=== PATIENT | female | born 1995 | race Caucasian/White ===

== ENCOUNTER 2016-07-27 16:19 | Emergency (ER) | payer OTHER ==
[2016-07-27] MEDS ORDERED: LIDOCAINE VISCOUS 2% 15 ML UDC MM STA (17:33)
[2016-07-27] MEDS ORDERED: MAG HYDROX/AL HYDROX/SIMETH 30 ML UDC PO STA (17:33)
[2016-07-27] MEDS ORDERED: IBUPROFEN 600 MG TABLET PO STA (17:33)
[2016-07-27] MEDS ORDERED: IBUPROFEN 600 MG TABLET PO ONE (17:39)
[2016-07-27] MEDS ORDERED: MAG HYDROX/AL HYDROX/SIMETH 30 ML UDC ONE (17:39)
[2016-07-27] MEDS ORDERED: LIDOCAINE VISCOUS 2% 15 ML UDC MM ONE (17:39)
[2016-07-27] MEDS ORDERED: FAMOTIDINE 20 MG TABLET PO STA (19:26)
[2016-07-27] MEDS ORDERED: CEPHALEXIN 250 MG CAPSULE PO STA (19:26)
[2016-07-27] MEDS ORDERED: FAMOTIDINE 20 MG TABLET ONE (19:30)
[2016-07-27] MEDS ORDERED: CEPHALEXIN 250 MG CAPSULE PO ONE (19:30)
== END 2016-07-27 19:37 | disposition home or self-care (01) ==
DX: O99.89 Other specified diseases and conditions complicating pregnancy, childbirth and the puerperium (principal); R07.2 Precordial pain; R03.0 Elevated blood-pressure reading, without diagnosis of hypertension; O23.12 Infections of bladder in pregnancy, second trimester; Z3A.19 19 weeks gestation of pregnancy
CPT/HCPCS: 36415; 80053; 81001; 83690; 85025; 93005; 99283; 99284; A9270

== ENCOUNTER 2016-12-02 21:31 | Outpatient (CLI) | payer OTHER | END 2016-12-02 22:37 | disposition still patient (30) | DX: O36.8130 Decreased fetal movements, third trimester, not applicable or unspecified (principal); O99.89 Other specified diseases and conditions complicating pregnancy, childbirth and the puerperium; R07.9 Chest pain, unspecified; R06.02 Shortness of breath; Z3A.36 36 weeks gestation of pregnancy ==

== ENCOUNTER 2016-12-02 22:42 | Emergency (ER) | payer OTHER ==
--- NOTE | 2016-12-02 22:45 | ED Physician Documentation ---
PD HPI CHEST PAIN - Stated complaint Stated Complaint: BACK,CHEST PAIN,36W - History obtained from History obtained from: Patient - History of Present Illness Timing - onset: How many days ago (few) Timing - onset during: Light activity Timing - duration: Days Timing - details: Abrupt onset, Still present, Waxing and waning Quality: Sharp, Pain Location: Left chest, Other (left medial scapular area, radiating to chest at times.) Radiation: Back Improved by: Other (sitting up) Worsened by: Position (lying down flatter). No: Inspiration, Movement Associated symptoms: No: Shortness of air, Diaphoresis, Nausea, Feeling faint / dizzy, Palpitations, Cough Similar symptoms before: Has not had sx before Review of Systems Constitutional: denies: Fever, Chills Nose: denies: Rhinorrhea / runny nose, Congestion Throat: denies: Sore throat Cardiac: denies: Palpitations, Pedal edema, Calf pain Respiratory: denies: Dyspnea, Cough GI: reports: Nausea, Other (having intermittent contraction pains for the past week, is 37 weeks .). denies: Vomiting, Diarrhea : reports: Frequency. denies: Dysuria Skin: denies: Rash, Lesions Musculoskeletal: reports: Back pain. denies: Extremity pain Neurologic: denies: Focal weakness, Numbness PD PAST MEDICAL HISTORY - Past Medical History Respiratory: Asthma Musculoskeletal: None - Past Surgical History Past Surgical History: Yes HEENT: Myringotomy (tubes) - Present Medications Home Medications: Ambulatory Orders Medication Instructions Recorded Confirmed Cephalexin [Keflex] 500 mg PO TID #15 capsule 07/27/16 Famotidine 20 mg PO DAILY #30 tablet 07/27/16 Methocarbamol [Robaxin] 500 mg PO TID #25 tablet 12/03/16 - Allergies Allergies/Adverse Reactions: Allergies Allergy/AdvReac Type Severity Reaction Status Date / Time No Known Drug Allergies Allergy Verified 07/27/16 17:07 - Social History Does the pt smoke?: No Smoking Status: Never smoker Does the pt drink ETOH?: No Does the pt have substance abuse?: No - Family History Family history: denies: Venous thromboembolism, Aortic aneursym, Aortic dissection - Immunizations Immunizations are current?: Yes PD ED PE NORMAL - Vitals Vital signs reviewed: Yes - General General: Alert and oriented X 3, Well developed/nourished - Neck Neck: Supple, no meningeal sign, No adenopathy - Cardiac Cardiac: RRR, No murmur - Respiratory Respiratory: No respiratory distress, Clear bilaterally - Abdomen Abdomen: Normal bowel sounds, Soft, Other (gravid to below xyphoid c/w dates. Not tender. ) - Female Female : Deferred - Rectal Rectal: Deferred - Back Back: No CVA TTP, Other (Muscular tender left medial scapular area about T4-5 level. ) - Derm Derm: Normal color, Warm and dry, No rash - Extremities Extremities: Normal ROM s pain, No edema, No calf tenderness / cord - Neuro Neuro: Alert and oriented X 3, No motor deficit, Normal speech Results - Vitals Vitals: Vital Signs - 24 hr 12/02/16 12/03/16 22:50 00:16 Temperature 36.6 C Heart Rate 52 L 101 H Respiratory 16 18 Rate Blood Pressure 143/75 H 131/67 H O2 Saturation 98 100 Oxygen O2 Source Room air - EKG (time done) 23:28 Rate: Rate (enter#) (94) Rhythm: NSR [place]: Normal Intervals: Normal VT QRS: Normal Ischemia: Normal ST segments. No: ST elevation c/w ischemia, ST depression - Rads (name of study) chest Radiology: Prelim report reviewed (normal) PD MEDICAL DECISION MAKING - ED course Complexity details: reviewed results, considered differential (she has pain with position (worse lying down, better sitting up), not with breathing, and does not have dyspnea nor cough. There is tenderness to palpation in medial scapular muscle on left. CXR and ECG, vitals, HR, sats are good. Does not seem like threatening cause. ), d/w patient Departure - Departure Disposition: 01 Home, Self Care Clinical Impression: Acute thoracic back pain Qualifiers: Back pain laterality: left Qualified Code(s): M54.6 - Pain in thoracic spine Qualifiers: Weeks of gestation: 37 weeks Qualified Code(s): Z3A.37 - 37 weeks gestation of Condition: Stable Record reviewed to determine appropriate education?: Yes Instructions: ED Sprain Thoracic Spine Prescriptions: Methocarbamol [Robaxin] 500 mg PO TID #25 tablet Comments: Tylenol 650 mg four times daily. Add Robaxin muscle relaxant three times daily as needed for spasms/muscle pain. Use the hydrocodone every 6 hours if needed ( prepack). Follow up [employer] in the next 1-2 days. Return sooner if worse or other symptoms. This seems like muscular pain in the upper back. It could be somewhat referred back contractions pain, though seems a bit high up for that and not correlating with the uterine contractions. Discharge Date/Time: 12/03/16 00:17
[2016-12-02] MEDS ORDERED: HYDROcod/ACETAM 5/325 MG TABLET PO STA (23:05)
[2016-12-02] MEDS ORDERED: HYDROcod/ACETAM 5/325 MG TABLET ONE (23:12)
--- NOTE | 2016-12-02 23:40 | XRAY Preliminary Report ---
Exam: XR Chest 1 View IMPRESSION: 1. No acute abnormality seen in the chest. [facility] SITE ID: [id number]
--- NOTE | 2016-12-02 23:42 | XRAY Report ---
EXAM: CHEST RADIOGRAPHY EXAM DATE: 12/02/2016 11:25 PM. CLINICAL HISTORY: Upper chest pain since yesterday. COMPARISON: None. TECHNIQUE: 1 view. FINDINGS: Lungs/Pleura: No alveolar consolidation or pleural effusion. No pneumothorax. Mediastinum: Within exam limitations, cardiomediastinal contour is normal. Other: None. IMPRESSION: 1. No acute abnormality seen in the chest. [facility] Referring Provider Line: [phone] SITE ID: [id number]
[2016-12-03] MEDS ORDERED: HYDROcod/ACET 5/325 Prepack 6 PO ONE ×2 (00:06→00:07)
[2016-12-03] MEDS ORDERED: METHOCARBAMOL 500 MG TABLET PO STA (00:06)
[2016-12-03] MEDS ORDERED: METHOCARBAMOL 500 MG TABLET PO ONE (00:08)
[2016-12-03 00:17] VITALS: BP 131/67
== END 2016-12-03 00:17 | disposition home or self-care (01) ==
LOC: ED 22:42
DX: O99.89 Other specified diseases and conditions complicating pregnancy, childbirth and the puerperium (principal); M54.6 Pain in thoracic spine; O36.8130 Decreased fetal movements, third trimester, not applicable or unspecified; R07.9 Chest pain, unspecified; R06.02 Shortness of breath; Z3A.36 36 weeks gestation of pregnancy
CPT/HCPCS: 59025; 71010; 81001; 93005; 99214; 99283; 99284; A9270

== ENCOUNTER 2017-01-18 13:11 | Emergency (ER) | payer OTHER ==
--- NOTE | 2017-01-18 13:30 | ED Physician Documentation ---
PD HPI MHE - Stated complaint Stated Complaint: MHE - Chief complaint Chief Complaint: MHE - History obtained from History obtained from: Patient, Family - Additional information Additional information: She is about a month , shortly after giving she started having thoughts of killing her drowning her baby, few weeks later has been having thoughts of self-harm because she feels so guilty about that. Prior to giving she really did not have any psychiatric issues. She started Zoloft yesterday. Review of Systems Ten Systems: 10 systems reviewed and negative Constitutional: reports: Reviewed and negative Throat: reports: Reviewed and negative Cardiac: reports: Reviewed and negative Respiratory: reports: Dyspnea PD PAST MEDICAL HISTORY - Past Medical History Respiratory: Asthma Musculoskeletal: None - Past Surgical History Past Surgical History: Yes HEENT: Myringotomy (tubes) - Present Medications Home Medications: Ambulatory Orders Medication Instructions Recorded Confirmed Cephalexin [Keflex] 500 mg PO TID #15 capsule 07/27/16 Famotidine 20 mg PO DAILY #30 tablet 07/27/16 Methocarbamol [Robaxin] 500 mg PO TID #25 tablet 12/03/16 - Allergies Allergies/Adverse Reactions: Allergies Allergy/AdvReac Type Severity Reaction Status Date / Time No Known Drug Allergies Allergy Verified 07/27/16 17:07 - Social History Does the pt smoke?: No Smoking Status: Never smoker Does the pt drink ETOH?: No Does the pt have substance abuse?: No - Family History Family history: reports: Non contributory - Immunizations Immunizations are current?: Yes PD ED PE NORMAL - Vitals Vital signs reviewed: Yes - General General: Alert and oriented X 3, No acute distress - HEENT HEENT: PERRL, EOMI - Neck Neck: Supple, no meningeal sign, No bony TTP - Cardiac Cardiac: RRR, No murmur - Respiratory Respiratory: No respiratory distress, Clear bilaterally - Abdomen Abdomen: Soft, Non tender - Back Back: No CVA TTP, No spinal TTP - Derm Derm: Normal color, Warm and dry - Extremities Extremities: No edema, No calf tenderness / cord - Neuro Neuro: Alert and oriented X 3, Normal speech - Psych Psych: Normal mood, Normal affect Results - Vitals Vitals: Vital Signs - 24 hr 01/18/17 01/18/17 13:16 18:10 Temperature 36.6 C Heart Rate 84 80 Respiratory 18 18 Rate Blood Pressure 136/60 H 135/62 H O2 Saturation 98 98 Oxygen O2 Source Room air - Labs Labs: Laboratory Tests 01/18/17 01/18/17 01/18/17 13:57 13:57 13:57 WBC 7.7 RBC 4.76 Hgb 12.2 Hct 37.5 MCV 78.7 L MCH 25.6 L MCHC 32.5 RDW 18.1 H Plt Count 363 MPV 7.2 L Neut # 4.2 Lymph # 2.4 [place] # 0.6 Eos # 0.4 Baso # 0.1 Absolute Nucleated RBC 0.01 Nucleated RBCs 0.1 Sodium 138 Potassium 3.9 Chloride 104 Carbon Dioxide 25 Anion Gap 9.0 BUN 18 Creatinine 0.9 Estimated GFR (MDRD) 78 L Glucose 105 H Calcium 9.9 Total Bilirubin 0.5 AST 27 ALT 33 Alkaline Phosphatase 63 Total Protein 8.1 Albumin 4.1 Globulin 4.0 Albumin/Globulin Ratio 1.0 Lipase 22 TSH 1.68 Urine Color Urine Clarity Urine pH Ur Specific [place] Urine Protein Urine Glucose (UA) Urine Ketones Urine Occult Blood Urine Nitrite Urine Bilirubin Urine Urobilinogen Ur Leukocyte Esterase Urine RBC Urine WBC Ur Squamous Epith Cells Urine Bacteria Ur Microscopic Review Urine Culture Comments Urine HCG, Qual Urine Opiates Screen Ur Oxycodone Screen Urine Methadone Screen Ur Propoxyphene Screen Ur Barbiturates Screen Ur Tricyclics Screen Ur Phencyclidine Scrn Ur Amphetamine Screen U Methamphetamines Scrn U Benzodiazepines Scrn Urine Cocaine Screen U Cannabinoids Screen Ethyl Alcohol < 5.0 01/18/17 01/18/17 16:40 16:40 WBC RBC Hgb Hct MCV MCH MCHC RDW Plt Count MPV Neut # Lymph # [place] # Eos # Baso # Absolute Nucleated RBC Nucleated RBCs Sodium Potassium Chloride Carbon Dioxide Anion Gap BUN Creatinine Estimated GFR (MDRD) Glucose Calcium Total Bilirubin AST ALT Alkaline Phosphatase Total Protein Albumin Globulin Albumin/Globulin Ratio Lipase TSH Urine Color YELLOW Urine Clarity SL. CLOUDY Urine pH 5.5 Ur Specific [place] 1.015 Urine Protein NEGATIVE Urine Glucose (UA) NEGATIVE Urine Ketones NEGATIVE Urine Occult Blood SMALL H Urine Nitrite NEGATIVE Urine Bilirubin NEGATIVE Urine Urobilinogen 0.2 (NORMAL) Ur Leukocyte Esterase LARGE H Urine RBC 6-10 H Urine WBC 11-25 H Ur Squamous Epith Cells MANY Squamous H Urine Bacteria Many H Ur Microscopic Review INDICATED Urine Culture Comments NOT INDICATED Urine HCG, Qual NEGATIVE Urine Opiates Screen NEGATIVE Ur Oxycodone Screen NEGATIVE Urine Methadone Screen NEGATIVE Ur Propoxyphene Screen NEGATIVE Ur Barbiturates Screen NEGATIVE Ur Tricyclics Screen NEGATIVE Ur Phencyclidine Scrn NEGATIVE Ur Amphetamine Screen NEGATIVE U Methamphetamines Scrn NEGATIVE U Benzodiazepines Scrn NEGATIVE Urine Cocaine Screen NEGATIVE U Cannabinoids Screen NEGATIVE Ethyl Alcohol PD MEDICAL DECISION MAKING - ED course ED course: Seen by the social services and arrangements made for psychiatric hospitalization. She was accepted both at [facility] and [facility]. The patient actually refused hospitalization, she felt that she wanted to go home to be with her family and the and father were actually comfortable with this plan and watching her closely. She denied current suicidal or homicidal ideation. I had a long discussion with them, I felt she was fairly high risk and I was very uncomfortable with her being discharged to home. I felt that this potentially presented a significant risk to the patient and her family. I discussed this with them openly and freely. The social services and I also discussed this together and with the patient. They understand my concerns and the patient signed out AGAINST MEDICAL ADVICE; the also signed the form with the understanding of my impression of the risk of the situation and willingness to undertake this risk upon himself. Social work consulted with [facility] who felt that there was no indication for involuntary treatment. size worker also impressed upon them the importance of returning anytime if worse and will report the case to CPS as well. Departure - Departure Disposition: 07 Against Medical Advice Clinical Impression: Post depression Condition: Serious Discharge Date/Time: 01/18/17 18:14
[2017-01-18 14:06] LABS: BASOPHILS # (AUTO) 0.1 10^3/uL (0.0-0.1); BASOPHILS % (AUTO) 1.3 %; EOSINOPHILS # (AUTO) 0.4 10^3/uL (0.0-0.7); EOSINOPHILS % (AUTO) 4.6 %; HCT - HEMATOCRIT 37.5 % (37.0-47.0); HGB - HEMOGLOBIN 12.2 g/dL (12.0-16.0); LYMPHOCYTES # (AUTO) 2.4 10^3/uL (1.5-3.5); LYMPHOCYTES % (AUTO) 31.5 %; MEAN CORPUSCULAR HEMOGLOBIN 25.6 pg (27.0-31.0); MEAN CORPUSCULAR HGB CONC 32.5 g/dL (32.0-36.0); MEAN CORPUSCULAR VOLUME 78.7 fL (81.0-99.0); MEAN PLATELET VOLUME 7.2 fL (7.9-10.8); MONOCYTES # (AUTO) 0.6 10^3/uL (0.0-1.0); MONOCYTES % (AUTO) 7.6 %; NEUTROPHILS # (AUTO) 4.2 10^3/uL (1.5-6.6); NUCLEATED RED BLOOD CELLS AUTO 0.1 /100WBC; RED BLOOD COUNT 4.76 10^6/uL (4.20-5.40); RED CELL DISTRIBUTION WIDTH 18.1 % (12.0-15.0); UNCORRECTED WHITE BLOOD COUNT 7.7 x10^3/uL; WHITE BLOOD COUNT 7.7 x10^3/uL (4.8-10.8)
[2017-01-18 14:18] LABS: BILIRUBIN,TOTAL 0.5 mg/dL (0.2-1.0); BUN - BLOOD UREA NITROGEN 18 mg/dL (6-20); CALCIUM 9.9 mg/dL (8.5-10.3); CARBON DIOXIDE - CO2 25 mmol/L (21-32); CHLORIDE 104 mmol/L (101-111); CREATININE 0.9 mg/dL (0.4-1.0); GFR - MDRD 78 (>89); GLUCOSE 105 mg/dL (70-100); LIPASE 22 U/L (22-51); POTASSIUM 3.9 mmol/L (3.5-5.0); SODIUM 138 mmol/L (135-145); TOTAL PROTEIN 8.1 g/dL (6.7-8.2)
[2017-01-18 16:45] LABS: BILIRUBIN,URINE NEGATIVE (NEGATIVE); PH,URINE 5.5 PH (5.0-7.5)
[2017-01-18 16:47] LABS: HCG UR QUAL NEGATIVE; UA w/ MICROSCOPIC CHARGE YES
[2017-01-18 16:57] LABS: UR CULTURE IF IND NOT INDICATED
[2017-01-18 18:17] VITALS: BP 135/62
== END 2017-01-18 18:14 | disposition left against medical advice (07) ==
LOC: ED 13:11
DX: F53 Mental and behavioral disorders associated with the puerperium, not elsewhere classified (principal)
CPT/HCPCS: 36415; 80053; 80306; 80320; 81001; 81003; 81025; 83690; 84443; 85025; 87086; 99283; 99284

== ENCOUNTER 2024-01-01 01:03 | Emergency (ER) | payer OTHER ==
[2024-01-01 01:34] VITALS: BP 148/90; O2SAT 95
[2024-01-01] MEDS: IPRATROPIUM/ALBUTEROL 3 ML NEB INH STA (02:04)
[2024-01-01] MEDS: DEXAMETHASONE 10 MG/ML VIAL IM STA (02:08)
[2024-01-01 02:16] LABS: B. PARAPERTUSSIS- RESP PCR PAN NOT DETECTED; B. PERTUSSIS- RESP PCR PANEL NOT DETECTED; C. PNEUMONIAE- RESP PCR PANEL NOT DETECTED; CORONAVIRUS 229E-RESP PCR NOT DETECTED; CORONAVIRUS HKU1-RESP PCR NOT DETECTED; CORONAVIRUS NL63-RESP PCR NOT DETECTED; CORONAVIRUS OC43-RESP PCR NOT DETECTED; HUMAN METAPNEUMOVIRUS NOT DETECTED; INFLUENZA A- RESP PCR PANEL NOT DETECTED; INFLUENZA B - RESP PCR PANEL NOT DETECTED; M. PNEUMONIAE- RESP PCR PANEL NOT DETECTED; PARAINFLUENZA VIRUS 1 NOT DETECTED; PARAINFLUENZA VIRUS 2 NOT DETECTED; PARAINFLUENZA VIRUS 3 NOT DETECTED; PARAINFLUENZA VIRUS 4 NOT DETECTED; RHINOVIRUS/ENTEROVIRUS NOT DETECTED; RSV- RESP PCR PANEL NOT DETECTED; SARS-CoV-2 -RESP PCR PANEL NOT DETECTED
--- NOTE | 2024-01-01 02:30 | ED Physician Documentation ---
History of Present Illness - Stated complaint Stated Complaint: SOA/COUGH - Chief complaint Chief Complaint: Resp - History obtained from History obtained from: Patient - Additonal information Additional information: The patient comes to the emergency department chief complaint of "I am having an asthma attack". The patient has had a dry cough for about a month and is already been on her albuterol inhaler and a steroid taper a couple of weeks ago. She states the cough is persisted and when she lays down at night or on her side, she feels like it is worse. She states whenever she comes to seek medical attention, her lungs seem to sound better and nothing is changed about her course of treatment. The patient is concerned because the symptoms keep going on. She has a history of asthma but it usually exercise-induced. She has not felt like she is sick with anything per se and states that the cough does not feel like her usual allergies. She denies any workplace exposures. She is not a tobacco smoker but she does vape marijuana. PD PAST MEDICAL HISTORY - Past Medical History Past Medical History: Yes Respiratory: Asthma Musculoskeletal: None - Past Surgical History Past Surgical History: Yes HEENT: Myringotomy (tubes) - Present Medications Home Medications: Ambulatory Orders Medication Instructions Recorded Confirmed Famotidine 20 mg PO DAILY #30 tablet 07/27/16 cephALEXin [Keflex] 500 mg PO TID #15 capsule 07/27/16 methocarbamoL [Robaxin] 500 mg PO TID #25 tablet 12/03/16 Fluticasone Propion/Salmeterol 1 each IH BID #1 ea 01/01/24 [Advair 100-50 Diskus] predniSONE [Deltasone] 10 mg PO [id number] #42 tab 01/01/24 - Allergies Allergies/Adverse Reactions: Allergies Allergy/AdvReac Type Severity Reaction Status Date / Time No Known Drug Allergies Allergy Verified 01/01/24 01:14 - Social History Does the pt smoke?: No Smoking Status: Never smoker Does the pt drink ETOH?: No Does the pt have substance abuse?: No - Immunizations Immunizations are current?: Yes - POLST Patient has POLST: No PD ED PE NORMAL - Vitals Vital signs reviewed: Yes - General General: Alert and oriented X 3, No acute distress, Well developed/nourished - HEENT HEENT: Atraumatic, PERRL, EOMI, Moist mucous membranes - Neck Neck: Supple, no meningeal sign - Cardiac Cardiac: RRR, No murmur, Strong equal pulses - Respiratory Respiratory: No respiratory distress, Other (Faint wheezes throughout lungs bilaterally with fairly good air movement, slightly diminished.) - Abdomen Abdomen: Soft, Non tender, Non distended - Derm Derm: Normal color, Warm and dry, No rash - Extremities Extremities: No deformity, No edema - Neuro Neuro: Alert and oriented X 3 - Psych Psych: Normal mood, Normal affect Results - Vitals Vitals: Vital Signs - 24 hr 01/01/24 01/01/24 01:15 02:05 Temperature 36.1 C L Heart Rate 85 89 Respiratory 20 22 Rate Blood Pressure 148/90 H O2 Saturation 95 Oxygen O2 Source Room air - Labs Labs: Laboratory Tests 01/01/24 01:20 Nasal Adenovirus (PCR) NOT DETECTED Nasal B. parapertussis DNA (PCR) NOT DETECTED Nasal Coronavir 229E PCR NOT DETECTED Nasal Coronavir HKU1 PCR NOT DETECTED Nasal Coronavir NL63 PCR NOT DETECTED Nasal Coronavir OC43 PCR NOT DETECTED Nasal Enterovir/Rhinovir PCR NOT DETECTED Nasal Influenza B PCR NOT DETECTED Nasal Influenza A PCR NOT DETECTED Nasal Parainfluen 1 PCR NOT DETECTED Nasal Parainfluen 2 PCR NOT DETECTED Nasal Parainfluen 3 PCR NOT DETECTED Nasal Parainfluen 4 PCR NOT DETECTED Nasal RSV (PCR) NOT DETECTED Nasal B.pertussis DNA PCR NOT DETECTED Nasal C.pneumoniae (PCR) NOT DETECTED Boris Human Metapneumo PCR NOT DETECTED Nasal M.pneumoniae (PCR) NOT DETECTED Nasal SARS-CoV-2 (PCR) NOT DETECTED - Rads (name of study) Chest x-ray Relevant Findings:: Final report received, See rad report (No acute findings) PD Medical Decision Making - ED course Complexity details: reviewed results, re-evaluated patient, considered differential, d/w patient ED course: The patient was given a DuoNeb which did cause resulted in increased air movement but also, some rhonchi. The patient reported feeling quite a bit better. I will start her on an Advair discus to see if this helps improve her more ongoing symptoms. The patient has just seen her primary provider this past week and I have encouraged her to make another appointment to discuss addressing these ongoing symptoms. We have discussed the usual indications for return. Departure - Departure Disposition: 01 Home, Self Care Clinical Impression: Asthma Qualifiers: Asthma severity: mild Asthma persistence: intermittent Asthma complication type: with acute exacerbation Qualified Code(s): J45.21 - Mild intermittent asthma with (acute) exacerbation Condition: Stable Instructions: ED Reactive Airway Disease Prescriptions: Fluticasone Propion/Salmeterol [Advair 100-50 Diskus] 1 each IH BID #1 ea predniSONE [Deltasone] 10 mg PO [id number] #42 tab Comments: You were treated today with an oral steroid and a combination nebulizer treatment. Your viral panel is negative and your chest x-ray looks great. It is really important that you follow-up with your primary doctor to have a niecy us discussion about where to go from here as far as your ongoing cough and wheezing. It would be a good idea to consider trying an anti-allergy medicine such as Claritin-D and see if this helps. I have also prescribed a prednisone taper and another inhaler that you should take twice a day. Prescriptions for these have been electronically transmitted to the [facility] pharmacy in [place], your pharmacy of choice on record. Please pick them up in the morning and begin taking them then. Please schedule the next available appointment with your primary doctor. Forms: PCP List Discharge Date/Time: 01/01/24 02:40
--- NOTE | 2024-01-01 08:06 | XRAY Report ---
PROCEDURE: Chest 1V INDICATIONS: dyspnea, cough TECHNIQUE: One view of the chest was acquired. COMPARISON: 12/02/2016 FINDINGS: Surgical changes and devices: None. Lungs and pleura: No dense consolidation or pleural effusion Mediastinum: Normal heart size Bones and chest wall: Unremarkable IMPRESSION: No acute radiographic abnormality. Reviewed by: Delfino Colón MD on 01/01/2024 8:04 AM PDT Approved by: Delfino Colón MD on 01/01/2024 8:04 AM PDT Station ID: [id number]
== END 2024-01-01 02:40 | disposition home or self-care (01) ==
LOC: ED 01:03
DX: J45.21 Mild intermittent asthma with (acute) exacerbation (principal)
CPT/HCPCS: 87633; 94640; 94664; 96372; 99283